=== PATIENT | female | born 1980 | race Caucasian/White ===

== ENCOUNTER 2016-11-08 09:30 | Inpatient (IN) | payer MEDICAID ==
[~2016-11-08] VITALS: Ht 157.5 cm; Wt 67.1 kg
[2016-11-08 09:44] VITALS: Ht 157.5 cm; Wt 67.1 kg
[2016-11-08] MEDS ORDERED: CALC600T11 PO (09:44)
[2016-11-08] MEDS ORDERED: FOLI-49 PO (09:44)
[2016-11-08] MEDS ORDERED: FER325 PO (09:44)
[2016-11-08] MEDS ORDERED: PRENAT PO (09:44)
[2016-11-08 09:45] VITALS: BP 115/75; PULSE 88; RESP 18
--- NOTE | 2016-11-08 11:24 | RADRPT ---
PROCEDURE: Obstetrical ultrasound for biophysical profile CLINICAL INDICATION: Biophysical profile. . TECHNIQUE: Obstetrical ultrasound of the uterus for biophysical profile. Transabdominal views are obtained. COMPARISON: None FINDINGS: Single intrauterine gestation. Presentation: Cephalic. Placenta: Anterior. No evidence of placental abruption. No evidence of placenta previa. breathing movement = 2/2 tone = 2/2 motion = 2/2 ZACK = 2/2 ZACK = 10.0 cm heart rate: 138 beats per minute IMPRESSION: Single intrauterine gestation. Biophysical profile 10/18 RPTAT: AADD .Gamaliel Perez MD, MD Date Time Electronically viewed and signed by .Gamaliel Perez MD, on 11/08/2016 11:24 .B/
--- NOTE | 2016-11-08 11:34 | RADRPT ---
PROCEDURE: US OB. CLINICAL INDICATION: Size and dates , post dates TECHNIQUE: Multiple sonographic images of the pelvis and gravid uterus were obtained. The images were reviewed on a PACS workstation. COMPARISON: No prior studies are available for comparison. FINDINGS: There is a single viable intrauterine gestation. Cardiac activity is present with 129 beats per min vin. There is a vertex presentation. The placenta is posterior. There is no evidence for an abruption or placenta previa. There is a normal amount of amniotic fluid with an ZACK = 10 points cm. Measurements were made in order to determine age. The results are as follows: BPD =8.6 cm HC =32.5 cm AC =31.3 cm FL =6.9 cm Estimated gestational age of approximately 35 weeks and 4 days based on ultrasound measurements. Clinical age: 40 weeks and 1 day. The estimated date of delivery is 12/09/16, based on ultrasound measurements. The EFW = 2685 g, <3%, based on LMP age. RPTAT: AA IMPRESSION: Single viable intrauterine gestation of approximately 35 weeks and 4 days based on ultrasound measu rements. Smaller than clinical age by 4.5 weeks. .Pedro Merchant MD, MD Date Time Electronically viewed and signed by .Pedro Merchant MD, on 11/08/2016 11:33 .S/
--- NOTE | 2016-11-08 12:28 | TRIAGE ---
OB Triage Datetime Report Generated by CPN: 11/08/2016 12:27 Datetime: 11/08/2016 10:30 Stage of : OB Triage Maternal Assessment Level of Consciousness: Fully Conscious Labor Evaluation Frequency: 1-10 Monitor Mode: External Duration (sec)2399: 60-120 Quality: Mild Resting Tone [place]: Relaxed Heart Rate FHR Baseline Rate: 135 Monitor Mode: External US Variability: Moderate 6-25 bpm Accelerations: 15X15 Decelerations: None Category: Category I Pain Assessment Pain Scale: 0 Pain Goal: 3 Vaginal Exam Membrane Status: Intact Vaginal Bleeding: None Datetime: 11/08/2016 09:41 Assessment Type: Triage Maternal Assessment Level of Consciousness: Fully Conscious DTR's/Clonus: DTRs 2+; No Clonus Headache: Denies Blurred Vision: No Respiratory Effort: Unlabored; Regular Rhythm; Equal Expansion Breath Sounds, Left: Clear and Equal Breath Sounds, Right: Clear and Equal Nausea/Vomiting: Denies RUQ Epigastric Pain: Denies Lower Extremities Edema: None Degree: None Upper Extremities Edema: None Degree: None Facial Edema: None Fall Risk Assessment History of Falling: (0) No Secondary Diagnosis: (0) No Ambulatory Aid: (0) Bedrest/Nurse Assist IV Therapy: (0) No Gait: (0) Normal/Bedrest/Immobile Mental Status: (0) Oriented to Own Ability Fall Score: 0 Fall Risk Score Definition: No Risk: No action required Datetime: 11/08/2016 09:39 Time of Arrival: 11/08/2016 09:23 EGA: 40.1 Arrived By: Ambulatory Arrived From: Home Chief Complaint: PT HERE FOR NST/BPP FOR POST DATES Movement: Present Contractions: Denies/Absent Rupture of Membranes: Denies Vaginal Bleeding: None Vaginal Discharge: Denies Recent Sexual Intercouse: Denies Abdominal Trauma: Not Applicable Patient Complaints: None Time Provider Notified: 11/08/2016 10:00 Provider Notified: DELSHAD Initial Plan: NST/BPP/EFW Datetime: 11/08/2016 09:37 Monitor Mode: External Monitor Mode: External US
[2016-11-08] MEDS ORDERED: AMPICILLIN 2 GM/NS (PMX) 100 ML IV ONE (12:30)
[2016-11-08] MEDS ORDERED: LACTATED RINGER'S 1,000 ML IV PRN (13:19)
[2016-11-08] MEDS ORDERED: MISOPROSTOL 200 MCG TAB PR PRN (13:30)
[2016-11-08] MEDS ORDERED: OXYTOCIN 30 UNITS/LR 500 ML IV PRN (13:30)
[2016-11-08] MEDS ORDERED: OXYTOCIN 30 UNITS/LR 500 ML IV SCH ×2 (13:30)
[2016-11-08] MEDS ORDERED: IBUPROFEN 600 MG TAB PO PRN (13:30)
[2016-11-08] MEDS ORDERED: LIDOCAINE 1% (MPF) 30 ML INJ INJ PRN (13:30)
[2016-11-08] MEDS ORDERED: CARBOPROST 250 MCG INJ IM PRN (13:30)
[2016-11-08] MEDS ORDERED: METHYLERGONOVINE 0.2 MG INJ IM PRN (13:30)
[2016-11-08] MEDS ORDERED: BUTORPHANOL 2 MG INJ IV PRN (13:30)
[2016-11-08] MEDS: LACTATED RINGER'S 1,000 ML IV SCH ×2 (13:37→19:29)
[2016-11-08 14:10] LABS: BASOPHILS % 0.4 % (0.0-2.0); EOSINOPHILS % 0.4 % (0.0-7.0); HEMATOCRIT 37.5 % (37.0-47.0); HEMOGLOBIN 12.6 g/dl (12.0-16.0); LYMPHOCYTES # 1.8 10^3/ul (0.8-2.9); LYMPHOCYTES % 24.8 % (15.0-51.0); MEAN CORPUSCULAR HEMOGLOBIN 25.8 pg (29.0-33.0); MEAN CORPUSCULAR HGB CONC 33.6 g/dl (32.0-37.0); MEAN CORPUSCULAR VOLUME 76.8 fl (82.0-101.0); MEAN PLATELET VOLUME 11.6 fl (7.4-10.4); MONOCYTE # 0.6 10^3/ul (0.3-0.9); MONOCYTES % 7.6 % (0.0-11.0); NEUTROPHILS % 66.5 % (39.0-77.0); PLATELET COUNT 208 10^3/UL (140-415); RED BLOOD COUNT 4.88 10^6/ul (4.20-5.40); RED CELL DISTRIBUTION WIDTH 15.3 % (11.5-14.5); WHITE BLOOD COUNT 7.2 10^3/ul (4.8-10.8)
[2016-11-08] MEDS: MISOPROSTOL 25 MCG CAPSULE PO SCH ×3 (14:11→21:00)
[2016-11-08 14:28] LABS: INR 0.85; PROTIME 11.6 Sec (12.2-14.2); PT RATIO 0.9
[2016-11-08 14:29] LABS: PARTIAL THROMBOPLASTIN TIME 25.8 Sec (25.0-35.0)
[2016-11-08] MEDS ORDERED: MISOPROSTOL 25 MCG CAPSULE PO SCH (17:00)
[2016-11-08] MEDS: AMPICILLIN 1 GM/NS (PMX) 50 ML IV SCH ×2 (17:28→20:32)
--- NOTE | 2016-11-08 23:45 | HP ---
Date/Time of Note Date/Time of Note DATE: 11/08/16 TIME: 23:42 OB - History Hx of Present Chief Complaint: postdate Estimated Due Date: Nov 07, 2016 : 2 Para: 1 Spontaneous : 0 Therapeutic : 0 Ultrasounds: Abnormal US findings (IUGR) Obstetrical Complications: None Medical Complications: None Past Family/Social History * Past Medical, Surgical, Family and Obstetric Histories reviewed from chart. GBS Status: Positive OB Admission Exam Vital Signs Vital Signs Vital Signs Date Time Temp Pulse Resp B/P Pulse Ox O2 Delivery O2 Flow Rate FiO2 11/08/16 09:45 98.6 88 18 115/75 95 Room Air Physical Exam HEENT: WNL Heart: Rhythm Normal Lungs: Clear, Equal Abdomen: WNL Extremities: Normal Reflexes: Normal Cervical Dilatation: None Effacement: 50% Station: -1 Membranes: Intact Heart Rate: 130's Accelerations: Accelerations Present Decelerations: No Decelerations Varibility: Moderate Last 72 hours Lab Results CBC & BMP 11/08/16 13:35 OB Assessment/Plan Reason for admission: induction of labor Plan: Induction Induction Method: per Misoprostol Protocol RUPALI VALENTINE MD Nov 08, 2016 23:45
[2016-11-09] MEDS: AMPICILLIN 1 GM/NS (PMX) 50 ML IV SCH ×4 (00:43→12:37)
[2016-11-09] MEDS: MISOPROSTOL 25 MCG CAPSULE PO SCH ×2 (01:00→06:08)
[2016-11-09] MEDS: LACTATED RINGER'S 1,000 ML IV SCH ×3 (01:53→09:49)
[2016-11-09] MEDS ORDERED: FENTAnyl 2MCG/ML-ROPIV 0.2% 100 ML ONE (05:15)
[2016-11-09] MEDS ORDERED: DEXTROSE 5%-LR 1,000 ML IV SCH (06:14)
[2016-11-09] MEDS ORDERED: DEXTROSE 5%-LR 1,000 ML IV PRN (06:16)
[2016-11-09] MEDS ORDERED: ONDANSETRON 4 MG INJ IV PRN (09:30)
[2016-11-09] MEDS ORDERED: KETOROLAC 30 MG INJ IV PRN (09:30)
[2016-11-09] MEDS ORDERED: DIPHENHYDRAMINE 50 MG INJ IV PRN (09:30)
[2016-11-09] MEDS ORDERED: NALOXONE (0.4 MG/ML) INJ IV PRN (09:30)
[2016-11-09] MEDS ORDERED: HYDROmorphONE 1 MG/ML SYG IV PRN ×2 (09:30)
[2016-11-09] MEDS ORDERED: FENTAnyl 2MCG/ML-ROPIV 0.2% 100 ML BAG EPI SCH (09:30)
--- NOTE | 2016-11-09 12:50 | LDN ---
Date/Time of Note Date/Time of Note DATE: 11/09/16 TIME: 12:48 Delivery Summary Weeks of Gestation 40 weeks and 2 days Placenta Delivered: Spontaneously Meconium: Light Episiotomy: No Perineal laceration: 1 Laceration repair: Second degree laceration repaired with 3-0 Vicryl. Anesthesia type: Epidural Estimated blood loss: 200 Sponge & Needle done & correct: Yes All needle counts correct: Yes Any foreign bodies felt in the: No Problems: Infant Delivery Information Sex Sex: male Apgars 1 Minute: 9 5 Minute: 9 Suctioning Nose & mouth suctioned at eric: Yes Delee suction performed: No Umbilical Cord Umbilical cord with: 3 Vessels Cord presentations: no nuchal cord Cord Blood was obtained: Yes Mother & Baby Disposition Disposition Mom & Baby to Maternity; Good: Yes RUPALI VALENTINE MD Nov 09, 2016 12:50
[2016-11-09 14:34] VITALS: BP 122/66; PULSE 80; RESP 20
[2016-11-09] MEDS: LACTATED RINGER'S 1,000 ML IV* SCH ×2 (15:04→23:04)
[2016-11-09] MEDS ORDERED: WITCH HAZEL/GLYCERIN PAD PR PRN (15:30)
[2016-11-09] MEDS ORDERED: HYDROCODONE/APAP (5/325) TAB PO PRN (15:30)
[2016-11-09] MEDS ORDERED: CARBOPROST 250 MCG INJ IM PRN (15:30)
[2016-11-09] MEDS ORDERED: OXYTOCIN 30 UNITS/LR 500 ML IV PRN (15:30)
[2016-11-09] MEDS ORDERED: DIBUCAINE 1% 30 GM OINT PR PRN (15:30)
[2016-11-09] MEDS ORDERED: METHYLERGONOVINE 0.2 MG INJ IM PRN (15:30)
[2016-11-09] MEDS ORDERED: ACETAMINOPHEN 325 MG TAB PO PRN (15:30)
[2016-11-09] MEDS ORDERED: MISOPROSTOL 200 MCG TAB PR PRN (15:30)
[2016-11-09] MEDS: BENZOCAINE 20% 56 ML SPRAY TOP PRN (15:59)
[2016-11-09 16:55] VITALS: BP 109/56; PULSE 90; RESP 20
[2016-11-09] MEDS: IBUPROFEN 600 MG TAB PO SCH (18:09)
[2016-11-09 20:00] VITALS: BP 116/71; PULSE 61; RESP 18
[2016-11-09] MEDS: SENNA/DOCUSATE NA (8.6MG/50MG) TAB PO SCH (21:40)
[2016-11-10] VITALS: BP 97/58; PULSE 65; RESP 18
[2016-11-10] MEDS: IBUPROFEN 600 MG TAB PO SCH ×5 (00:11→23:37)
[2016-11-10 04:00] VITALS: BP 96/55; PULSE 59; RESP 18
[2016-11-10] MEDS: LACTATED RINGER'S 1,000 ML IV* SCH ×2 (07:04→15:04)
[2016-11-10 08:40] VITALS: BP 104/61; PULSE 61; RESP 19
[2016-11-10] MEDS: SENNA/DOCUSATE NA (8.6MG/50MG) TAB PO SCH ×2 (09:35→21:20)
[2016-11-10 10:47] LABS: BASOPHILS % 0.4 % (0.0-2.0); EOSINOPHILS % 0.3 % (0.0-7.0); HEMATOCRIT 31.6 % (37.0-47.0); LYMPHOCYTES # 1.9 10^3/ul (0.8-2.9); LYMPHOCYTES % 19.1 % (15.0-51.0); MEAN CORPUSCULAR HEMOGLOBIN 24.8 pg (29.0-33.0); MEAN CORPUSCULAR HGB CONC 31.6 g/dl (32.0-37.0); MEAN CORPUSCULAR VOLUME 78.2 fl (82.0-101.0); MEAN PLATELET VOLUME 11.6 fl (7.4-10.4); MONOCYTE # 0.5 10^3/ul (0.3-0.9); NEUTROPHILS % 74.8 % (39.0-77.0); PLATELET COUNT 172 10^3/UL (140-415); RED BLOOD COUNT 4.04 10^6/ul (4.20-5.40); RED CELL DISTRIBUTION WIDTH 15.8 % (11.5-14.5); WHITE BLOOD COUNT 10.1 10^3/ul (4.8-10.8)
[2016-11-10] MEDS: BENZOCAINE 20% 56 ML SPRAY TOP PRN (15:29)
[2016-11-10 15:35] VITALS: BP 116/85; PULSE 60; RESP 18
[2016-11-10 19:50] VITALS: BP 107/71; PULSE 59; RESP 18
--- NOTE | 2016-11-10 20:30 | DS ---
Date/Time of Note Date/Time of Note DATE: 11/10/16 TIME: 20:29 Obstetrical Discharge Record Final Diagnosis Final Diagnosis: Term delivered Vaginal Delivery Obstetrical Delivery: Spontaneous Complications Induction: Yes Condition on Discharge Physical Assessment Voiding: Yes Bowel Movement: Yes Breast: Soft, non-tender Fundus: Firm Calf Tenderness: No Patient Condition: Stable RUPALI VALENTINE MD Nov 10, 2016 20:30
[2016-11-11 04:10] VITALS: BP 103/62; PULSE 58; RESP 18
[2016-11-11] MEDS: IBUPROFEN 600 MG TAB PO SCH (05:41)
[2016-11-11 07:55] VITALS: BP 111/68; PULSE 56; RESP 18
--- NOTE | 2016-11-11 08:12 | CONS ---
Date/Time of Note Date/Time of Note DATE: 11/11/16 TIME: 08:11 Consultation Date/Type/Reason Admit Date/Time Nov 08, 2016 at 12:00 Initial Consult Date 11/11/16 Type of Consultation: Anesthesiology Reason for Consultation Follow up 24 HR Interval Summary Free Text/Dictation Pt seen and examined at bedside is POD#2 s/p with Epidural for pain management. Pt states she is doing well with minimal pain. No N/V/D/C/WEST/ Numbness in extremities. Will continue to follow. Constitutional: improved, no complaints Exam/Review of Systems Vital Signs Vitals Vital Signs Date Time Temp Pulse Resp B/P Pulse Ox O2 Delivery O2 Flow Rate FiO2 11/11/16 04:10 98.0 58 18 103/62 Room Air 11/08/16 09:45 95 Results Result Diagram: 11/10/16 1005 Results 24 hrs Laboratory Tests Test 11/10/16 10:05 White Blood Count 10.1 # Red Blood Count 4.04 L Hemoglobin 10.0 #L Hematocrit 31.6 L Mean Corpuscular Volume 78.2 L Mean Corpuscular Hemoglobin 24.8 L Mean Corpuscular Hemoglobin Concent 31.6 L Red Cell Distribution Width 15.8 H Platelet Count 172 Mean Platelet Volume 11.6 H Neutrophils % 74.8 Lymphocytes % 19.1 Monocytes % 5.0 Eosinophils % 0.3 Basophils % 0.4 Nucleated Red Blood Cells % 0.0 Neutrophils # (Manual) 7.6 H Lymphocytes # 1.9 Monocytes # 0.5 Eosinophils # 0.0 Basophils # 0.0 Nucleated Red Blood Cells # 0.0 Medications Medications Current Medications Ibuprofen (Motrin) 600 mg Q6 PO Last administered on 11/11/16 05:41; Admin Dose 600 MG; Start 11/09/16 at 18:00 Acetaminophen (Tylenol Tab) 650 mg Q4H PRN PO PAIN LEVEL 1-5 Last administered on 11/09/16 15:59; Admin Dose 650 MG; Start 11/09/16 at 15:30 Acetaminophen/ Hydrocodone Bitart (Vermillion (5/325)) 1 tab Q4H PRN PO PAIN LEVEL 1 -5; Start 11/09/16 at 15:30 Senna/Docusate Sodium (Senokot-S) 1 tab BID PO Last administered on 11/10/16 21:20; Admin Dose 1 TAB; Start 11/09/16 at 21:00 Diphtheria/ Tetanus/Acell Pertussis 0.5 ml 0.5 ml ONCE ONCE IM* ; Start 11/11/16 at 09:00; Stop 11/11/16 at 09:01 Oxytocin/Lactated Ringer's 500 ml @ 0 mls/hr ONCE PRN IV For Hemorrhage Management Last administered on 11/09/16 18:10; Admin Dose 125 MLS/HR; Start at 15:30 Methylergonovine Maleate (Methergine) 0.2 mg ONCE PRN IM VAGINAL BLEEDING; Start 11/09/16 at 15:30 Carboprost Tromethamine (Hemabate) 250 mcg ONCE PRN IM VAGINAL BLEEDING; Start 11/09/16 at 15:30 Misoprostol (Cytotec) 1,000 mcg ONCE PRN [place] VAGINAL BLEEDING; Start 11/09/16 at 15:30 ENA ANTOINE Nov 11, 2016 08:12
[2016-11-11] MEDS ORDERED: DIPHTH/TET/ACEL PERTUSS (ADULT) 0.5 ML VIAL IM* ONE (09:00)
[2016-11-11] MEDS: SENNA/DOCUSATE NA (8.6MG/50MG) TAB PO SCH (09:00)
== END 2016-11-11 15:48 | disposition home or self-care (01) | DRG 775 ==
LOC: OBT 09:30 → L-D 09:30 → OBT 12:00 → L-D 12:00 → PP1 11-09 15:30
PROVIDERS: ADMIT Obstetrics & Gynecology; ATTEND Obstetrics & Gynecology
PROC: 10E0XZZ Delivery of Products of Conception, External Approach (ICD-10-PCS; principal; 2016-11-09)
PROC: 0KQM0ZZ Repair Perineum Muscle, Open Approach (ICD-10-PCS; 2016-11-09)
DX: O70.1 Second degree perineal laceration during delivery (principal); Z37.0 Single live birth; Z3A.40 40 weeks gestation of pregnancy
CPT/HCPCS: 62319; 76815; 76818; 85025; 85610; 85730; 86592; 86900; 86901; 88307; 90715; 99464; G0463; J0290; J0595; J2590; J3010; J7120; J7121